=== PATIENT | female | born 1990 | race American Indian/Alaskan Native ===

== ENCOUNTER 2020-02-16 14:48 | Observation (INO) | payer OTHER ==
--- NOTE | 2020-02-16 15:10 | Event Note ---
ED Screening Note ED Screening Note: CO ABD PAIN FROM CYSTS - CHRONIC ISSUE- ON MENSES AND THIS IS WHEN IT IS WORSE ALSO CO CP PRESSURE FEELING NAUSEA SOB WORKS WITH PUBLIC RX NONE PSH NONE MENSES CURRENT This initial assessment/diagnostic orders/clinical plan/treatment(s) is/are subject to change based on patients health status, clinical progression and re- assessment by fellow clinical providers in the ED. Further treatment and workup at subsequent clinical providers discretion. Patient/guardian urged not to elope from the ED as their condition may be serious if not clinically assessed and managed. Initial orders include: XRAY UA/PREG
[2020-02-16 15:58] LABS: Bilirubin,Urine NEG (Negative); Blood,Urine LG (Negative); Color,Urine Yellow (Yellow); HCG Qualitative,Urine Negative (Negative); Mucus,Urine 1+ /HPF; Protein,Urine <15 mg/dL mg/dL (Negative); Urobilinogen,Urine < 2.0 mg/dL (<2.0)
[2020-02-16] MEDS ORDERED: KETOROLAC 30 MG/1 ML INJ IM ONE (16:22)
--- NOTE | 2020-02-16 16:26 | Emergency Department Report ---
ED Abdominal Pain HPI - General Chief Complaint: Abdominal Pain Stated Complaint: CHEST PAIN, ABD Time Seen by Provider: 02/16/20 15:08 Source: patient Mode of arrival: Ambulatory Limitations: No Limitations - History of Present Illness Initial Comments: This pleasant 29-year-old female presents the emergency department chief complaint of lower abdominal cramping that started yesterday. Patient reports a history of severe pain with her menstrual cycle and this has been going on for the past 3 years. She reports every month she will have severe pain similar to this in the lower abdomen when her period starts and after the first few days it will resolve. She states she frequently needs to go to the emergency department due to the severe pain though. She reports the pain is a 7 out of 10 described as cramping. She also reports that she has been having some pain in her chest when she moves her arms or coughs. She thinks she may have pulled a muscle. She states she has been having some nausea and vomiting which she relates to the pain. She denies any known past medical history, current medication use or known allergies to medications. Denies any bloody or bilious vomiting, denies any bloody diarrhea, denies any fever, chills, night sweats, headache, dizziness, blurry vision, shortness of breath, pleuritic pain, abscess or any other associated symptoms. - Related Data Allergies Allergy/AdvReac Type Severity Reaction Status Date / Time No Known Allergies Allergy Unverified 02/16/20 14:55 ED Review of Systems ROS: Stated complaint: CHEST PAIN, ABD Other details as noted in HPI Comment: All other systems reviewed and negative Constitutional: denies: chills, fever Eyes: denies: eye pain, eye discharge, vision change ENT: denies: ear pain, throat pain Respiratory: denies: cough, shortness of breath, wheezing Cardiovascular: as per HPI, chest pain. denies: palpitations Endocrine: no symptoms reported Gastrointestinal: as per HPI, abdominal pain. denies: nausea, diarrhea Genitourinary: denies: urgency, dysuria, discharge Musculoskeletal: denies: back pain, joint swelling, arthralgia Skin: denies: rash, lesions Neurological: denies: headache, weakness, paresthesias Psychiatric: denies: anxiety, depression Hematological/Lymphatic: denies: easy bleeding, easy bruising ED Past Medical Hx - Past Medical History Previous Medical History?: No - Surgical History Past Surgical History?: No - Family History Family history: no significant - Social History Smoking Status: Never Smoker Substance Use Type: None ED Physical Exam - General Limitations: No Limitations General appearance: alert, in no apparent distress - Head Head exam: Present: atraumatic, normocephalic - Eye Eye exam: Present: normal appearance, PERRL, EOMI Pupils: Absent: normal accommodation - ENT ENT exam: Present: normal exam, normal orophraynx, mucous membranes moist - Neck Neck exam: Present: normal inspection, full ROM. Absent: tenderness, meningismus - Respiratory Respiratory exam: Present: normal lung sounds bilaterally, chest wall tenderness (Tenderness to palpation of the right side of the chest wall). Absent: respiratory distress, wheezes, rales, rhonchi, stridor - Cardiovascular Cardiovascular Exam: Present: regular rate, normal rhythm. Absent: systolic murmur, diastolic murmur, rubs, gallop - GI/Abdominal GI/Abdominal exam: Present: soft, tenderness (Mild tenderness to suprapubic abdomen, no rebound or guarding, negative McBurney's point tenderness, negative Ng sign), normal bowel sounds. Absent: distended, guarding, rebound, rigid - Extremities Exam Extremities exam: Present: normal inspection, full ROM, normal capillary refill. Absent: tenderness, calf tenderness (Negative Homans sign bilaterally) - Back Exam Back exam: Present: normal inspection, full ROM. Absent: tenderness, CVA tenderness (R), CVA tenderness (L) - Neurological Exam Neurological exam: Present: alert, oriented X3, normal gait. Absent: motor sensory deficit - Psychiatric Psychiatric exam: Present: normal affect, normal mood - Skin Skin exam: Present: warm, dry, intact, normal color. Absent: rash ED Course Vital Signs 02/16/20 02/16/20 14:56 15:42 Temperature 98.4 F Pulse Rate 94 H Respiratory 18 15 Rate Blood Pressure 112/74 O2 Sat by Pulse 97 Oximetry ED Medical Decision Making - Radiology Data Radiology results: report reviewed, image reviewed Small right-sided pneumothorax. Critical care attestation.: If time is entered above; I have spent that time in minutes in the direct care of this critically ill patient, excluding procedure time. ED Disposition Clinical Impression: Dysmenorrhea Pneumothorax Qualifiers: Pneumothorax type: unspecified pneumothorax Qualified Code(s): J93.9 - Pneumothorax, unspecified Disposition: DC-09 OP ADMIT IP TO THIS HOSP Is pt being admited?: Yes Condition: Stable Referrals: PRIMARY CARE,MD [Primary Care Provider] - 3-5 Days Time of Disposition: 16:30
--- NOTE | 2020-02-16 16:34 | XRay Report ---
CHEST 2 VIEWS INDICATION / CLINICAL INFORMATION: CHEST PAIN. COMPARISON: None available. FINDINGS: SUPPORT DEVICES: None. HEART / MEDIASTINUM: No significant abnormality. LUNGS / PLEURA: There is a small right pneumothorax. Left lung appears clear. ADDITIONAL FINDINGS: No significant additional findings. IMPRESSION: 1. Small right pneumothorax. Findings discussed with Popeye Ahuja at 3:26 PM on 02/16/2020. Signer Name: Jacoby Obrien MD Signed: 02/16/2020 4:29 PM Workstation Name: [id number]
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
[2020-02-16] MEDS ORDERED: ONDANSETRON 4 MG/2 ML INJ IV PRN (16:43)
[2020-02-16] MEDS ORDERED: ACETAMINOPHEN 325 MG TAB PO PRN (16:43)
[2020-02-16 17:09] LABS: Basophils # (Auto) 0.1 K/mm3 (0.0-0.1); Basophils % (Auto) 0.7 % (0.0-1.8); Eosinophils % (Auto) 0.2 % (0.0-4.3); Hematocrit 36.2 % (30.3-42.9); Hemoglobin 11.9 gm/dl (10.1-14.3); Lymphocytes # (Auto) 1.1 K/mm3 (1.2-5.4); Mean Corpuscular HGB Conc 33 % (30-34); Mean Corpuscular Volume 84 fl (79-97); Monocytes # (Auto) 0.7 K/mm3 (0.0-0.8); Monocytes % (Auto) 6.2 % (0.0-7.3); Platelet Count 281 K/mm3 (140-440); Red Blood Count 4.33 M/mm3 (3.65-5.03); Red Cell Distribution Width 13.9 % (13.2-15.2)
[2020-02-16 17:16] LABS: Alanine Aminotransferase 10 units/L (7-56); Albumin 4.1 g/dL (3.9-5); BUN/Creatinine Ratio 14; Blood Urea Nitrogen 7 mg/dL (7-17); Hemolysis Index 7
[2020-02-16 17:51] LABS: INR 0.94 (0.87-1.13)
[2020-02-16 17:52] LABS: Partial Thromboplastin Time 34.6 Sec. (24.2-36.6)
[2020-02-16] MEDS: MORPHINE 2 MG/1 ML INJ IV PRN (19:36)
[2020-02-17] MEDS: MORPHINE 2 MG/1 ML INJ IV PRN (02:49)
--- NOTE | 2020-02-17 07:55 | XRay Report ---
CHEST 1 VIEW 0731 INDICATION / CLINICAL INFORMATION: pneumothorax COMPARISON: 02/16/2020 FINDINGS: SUPPORT DEVICES: None HEART / MEDIASTINUM: No significant abnormality. LUNGS / PLEURA: No significant infiltrates are seen. The right pneumothorax is improved and approxima tely 5% at this time. ADDITIONAL FINDINGS: No significant additional findings. IMPRESSION: Improved right pneumothorax Signer Name: Vishal Cash MD Signed: 02/17/2020 7:51 AM Workstation Name: [id number]
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
[2020-02-17 12:07] VITALS: BP 113/78
== END 2020-02-17 13:16 | disposition home or self-care (01) ==
LOC: ED 14:48 → 3B-SURG 16:43
PROVIDERS: ADMIT Internal Medicine; ATTEND Internal Medicine
DX: S27.0XXA Traumatic pneumothorax, initial encounter (principal); N94.6 Dysmenorrhea, unspecified; Y04.8XXA Assault by other bodily force, initial encounter; Y93.89 Activity, other specified; Y92.9 Unspecified place or not applicable
CPT/HCPCS: 36415; 71045; 71046; 80053; 81001; 81025; 85025; 85610; 85730; 93005; 96374; 96376; 99285; G0378; J2270

== ENCOUNTER 2021-08-29 10:26 | Emergency (ER) | payer OTHER ==
[2021-08-29 11:11] VITALS: BP 146/42
[2021-08-29] MEDS ORDERED: SODIUM CHLORIDE 0.9% 1000 ML 1,000 ML IV ONE (13:21)
[2021-08-29] MEDS ORDERED: METOCLOPRAMIDE 10 MG/2 ML INJ IV ONE (13:22)
--- NOTE | 2021-08-29 13:29 | Emergency Department Report ---
HPI - General Chief Complaint: Nausea/Vomiting/Diarrhea Time Seen by Provider: 08/29/21 12:57 - HPI HPI: 31-year-old female with history of endometriosis presents complaining of 2 days of diarrhea with nausea and one episode of vomiting. She states that for the last 2 days she has had approximately 5 episodes per day of loose stool. Over that time she is felt nauseated and slightly lightheaded but only had one episode of vomiting yesterday. Right now she still feels significantly nauseated. She says the frequency of her stools have decreased but because of the persistent nausea she decided to come in for further evaluation. She is unsure the exact date of her LMP because she has a regular menstrual periods. She says she has been vaginal spotting for the past 1 week. She denies any associated fever/chills, headache, vision change, shortness of breath, cough, chest pain, abdominal pain, dysuria, vaginal discharge, back pain, focal weakn ess, sensory changes, or any other complaints. She is fully vaccinated against COVID-19 but has not received a booster. ED Past Medical Hx - Past Medical History Previous Medical History?: Yes Hx Congestive Heart Failure: No Hx Diabetes: No Hx Asthma: No Hx COPD: No Additional medical history: endometriosis - Social History Smoking Status: Never Smoker - Medications Home Medications: Home Medications Medication Instructions Recorded Confirmed Last Taken Type oxyCODONE /ACETAMINOPHEN [Percocet 1 tab PO Q6HR PRN #15 tablet 02/17/20 Unknown Rx 5/325] Pantoprazole [Protonix TAB] 40 mg PO QDAY #14 tablet 08/29/21 Unknown Rx cephALEXin [Keflex] 500 mg PO Q12HR #14 cap 08/29/21 Unknown Rx ED Review of Systems ROS: Stated complaint: V/D AND CHEST PAIN X2 DAYS Other details as noted in HPI Comment: All other systems reviewed and negative Constitutional: denies: chills, fever Eyes: denies: eye pain, vision change ENT: denies: throat pain, congestion Respiratory: denies: cough, shortness of breath Cardiovascular: denies: chest pain, palpitations Gastrointestinal: nausea, vomiting, diarrhea. denies: abdominal pain, melena, hematochezia Genitourinary: denies: dysuria, frequency Musculoskeletal: denies: back pain, arthralgia Skin: denies: rash, lesions Neurological: denies: headache, weakness, numbness Physical Exam - Physical Exam Vital Signs: Vital Signs 08/29/21 11:09 Temperature 98.4 F Pulse Rate 82 Respiratory 17 Rate Blood Pressure 146/42 O2 Sat by Pulse 98 Oximetry Physical Exam: GENERAL: Well developed and well nourished. No acute distress HEAD: Normocephalic. No obvious signs of trauma. ENT: Dry mucous membranes. EYES: Extraocular movements are intact. Pupils are equal round and reactive to light bilaterally NECK: Supple. Full ROM is intact. Trachea is midline. LUNGS: Nonlabored breathing. Equal chest rise bilaterally. Clear to auscultation bilaterally. CARDIOVASCULAR: Regular rate and rhythm. No murmurs or rubs. VASCULAR: Cap refill < 2 seconds ABDOMEN: Abdomen is soft and nondistended. Positive Ng sign. There is right upper quadrant tenderness without guarding or rebound. The remainder of the abdomen is nontender. SKIN: Skin is warm and dry NEURO: Patient is awake, alert, and oriented. pattern storage clerk II-XII grossly intact. No focal deficits. Normal motor and sensory exam throughout. Normal speech. MUSCULOSKELETAL: No obvious deformities. No significant tenderness. Normal ROM throughout. BACK/SPINE: No midline tenderness or step-offs of the C/T/L spine. No costovertebral angle tenderness. ED Course Vital Signs 08/29/21 11:09 Temperature 98.4 F Pulse Rate 82 Respiratory 17 Rate Blood Pressure 146/42 O2 Sat by Pulse 98 Oximetry ED Medical Decision Making - Lab Data Result diagrams: 08/29/21 13:44 08/29/21 17:44 Lab Results 08/29/21 08/29/21 08/29/21 Range/Units 13:43 13:44 13:44 WBC 9.3 (4.5-11.0) K/mm3 RBC 4.36 (3.65-5.03) M/mm3 Hgb 12.1 (10.1-14.3) gm/dl Hct 36.7 (30.3-42.9) % MCV 84 (79-97) fl MCH 28 (28-32) pg MCHC 33 (30-34) % RDW 13.5 (13.2-15.2) % Plt Count 245 (140-440) K/mm3 Lymph % (Auto) 19.6 (13.4-35.0) % [place] % (Auto) 5.1 (0.0-7.3) % Eos % (Auto) 1.2 (0.0-4.3) % Baso % (Auto) 0.7 (0.0-1.8) % Lymph # (Auto) 1.8 (1.2-5.4) K/mm3 [place] # (Auto) 0.5 (0.0-0.8) K/mm3 Eos # (Auto) 0.1 (0.0-0.4) K/mm3 Baso # (Auto) 0.1 (0.0-0.1) K/mm3 Seg Neutrophils % 73.4 H (40.0-70.0) % Seg Neutrophils # 6.8 (1.8-7.7) K/mm3 Sodium 141 (137-145) mmol/L Potassium 5.6 H (3.6-5.0) mmol/L Chloride 105.9 (98-107) mmol/L Carbon Dioxide 20 L (22-30) mmol/L Anion Gap 21 mmol/L BUN 11 (7-17) mg/dL Creatinine 0.5 L (0.6-1.2) mg/dL Estimated GFR > 60 ml/min BUN/Creatinine Ratio 22 % Glucose 78 (65-100) mg/dL Calcium 9.0 (8.4-10.2) mg/dL Magnesium 2.20 (1.7-2.3) mg/dL Total Bilirubin 0.50 (0.1-1.2) mg/dL Direct Bilirubin < 0.2 (0-0.2) mg/dL Indirect Bilirubin 0.3 mg/dL AST 33 (5-40) units/L ALT 18 (7-56) units/L Alkaline Phosphatase 48 (35-129) units/L Total Protein 7.5 (6.3-8.2) g/dL Albumin 4.2 (3.9-5) g/dL Albumin/Globulin Ratio 1.3 % Lipase 22 (13-60) units/L HCG, Qual Negative (Negative) Urine Color (Yellow) Urine Turbidity (Clear) Urine pH (5.0-7.0) Ur Specific [place] (1.003-1.030) Urine Protein (Negative) mg/dL Urine Glucose (UA) (Negative) mg/dL Urine Ketones (Negative) mg/dL Urine Blood (Negative) Urine Nitrite (Negative) Urine Bilirubin (Negative) Urine Urobilinogen (<2.0) mg/dL Ur Leukocyte Esterase (Negative) Urine WBC (Auto) (0.0-6.0) /HPF Urine RBC (Auto) (0.0-6.0) /HPF U Epithel Cells (Auto) (0-13.0) /HPF Urine Bacteria (Auto) (Negative) /HPF Urine Mucus /HPF 08/29/21 08/29/21 Range/Units 17:44 Unknown WBC (4.5-11.0) K/mm3 RBC (3.65-5.03) M/mm3 Hgb (10.1-14.3) gm/dl Hct (30.3-42.9) % MCV (79-97) fl MCH (28-32) pg MCHC (30-34) % RDW (13.2-15.2) % Plt Count (140-440) K/mm3 Lymph % (Auto) (13.4-35.0) % [place] % (Auto) (0.0-7.3) % Eos % (Auto) (0.0-4.3) % Baso % (Auto) (0.0-1.8) % Lymph # (Auto) (1.2-5.4) K/mm3 [place] # (Auto) (0.0-0.8) K/mm3 Eos # (Auto) (0.0-0.4) K/mm3 Baso # (Auto) (0.0-0.1) K/mm3 Seg Neutrophils % (40.0-70.0) % Seg Neutrophils # (1.8-7.7) K/mm3 Sodium (137-145) mmol/L Potassium 3.7 D (3.6-5.0) mmol/L Chloride (98-107) mmol/L Carbon Dioxide (22-30) mmol/L Anion Gap mmol/L BUN (7-17) mg/dL Creatinine (0.6-1.2) mg/dL Estimated GFR ml/min BUN/Creatinine Ratio % Glucose (65-100) mg/dL Calcium (8.4-10.2) mg/dL Magnesium (1.7-2.3) mg/dL Total Bilirubin (0.1-1.2) mg/dL Direct Bilirubin (0-0.2) mg/dL Indirect Bilirubin mg/dL AST (5-40) units/L ALT (7-56) units/L Alkaline Phosphatase (35-129) units/L Total Protein (6.3-8.2) g/dL Albumin (3.9-5) g/dL Albumin/Globulin Ratio % Lipase (13-60) units/L HCG, Qual (Negative) Urine Color Yellow (Yellow) Urine Turbidity Hazy (Clear) Urine pH 7.0 (5.0-7.0) Ur Specific [place] 1.013 (1.003-1.030) Urine Protein <15 mg/dl (Negative) mg/dL Urine Glucose (UA) Neg (Negative) mg/dL Urine Ketones Neg (Negative) mg/dL Urine Blood Neg (Negative) Urine Nitrite Neg (Negative) Urine Bilirubin Neg (Negative) Urine Urobilinogen 4.0 (<2.0) mg/dL Ur Leukocyte Esterase Tr (Negative) Urine WBC (Auto) 16.0 H (0.0-6.0) /HPF Urine RBC (Auto) 2.0 (0.0-6.0) /HPF U Epithel Cells (Auto) < 1.0 (0-13.0) /HPF Urine Bacteria (Auto) 1+ (Negative) /HPF Urine Mucus Few /HPF - Radiology Data Radiology results: report reviewed - Medical Decision Making 31-year-old female presenting with 2 days of diarrhea and now with nausea/v omiting. Also with vaginal spotting for the past week. She is afebrile and with normal vital signs. On physical examination she has very dry mucous membranes and is noted to have tenderness in the right upper quadrant of the abdomen without guarding or rebound. She has no CVA tenderness. Given her abdominal tenderness we will perform broad work-up with a full set of labs as well as right upper quadrant ultrasound to assess for evidence of cholecystitis or cholelithiasis or choledocholithiasis. We will also obtain CT of the abdomen pelvis to assess for evidence of appendicitis, colitis, cholecystitis, or other intra-abdominal abnormality to explain the patient's presentation. We will o btain ultrasound of the bilateral ovaries to assess for evidence of torsion. We will give 1 L of IV fluids and Reglan and reassess. Labs reveal no significant leukocytosis or anemia. Kidney function is within normal limits and there is a single elevated potassium of 5.6 which I suspect is a lab error. I have ordered a repeat set of labs Lipase is negative. Serum hCG is negative. Transvaginal ultrasound reveals no abnormalities of the ovaries and normal color flow. Right upper quadrant ultrasound reveals no acute abnormalities and no evidence of cholecystitis or cholelithiasis. CT of the abdomen pelvis reveals symmetrical thickening of the distal stomach which is interpreted as physiologic contraction versus peptic ulcer disease. I have ordered 1 dose of Protonix now. Urinalysis reveals findings consistent with urinary tract infection for which I have ordered ceftriaxone. Repeat potassium is 3.7. I discussed with the patient the results of her studies and my suspicion for UTI and possible peptic ulcer disease. We discussed the plan to discharge the patient home on 14 days of omeprazole and 7 days of Keflex for urinary tract infection. She will follow-up with her primary care doctor and I will give her referral to gastroenterology. The patient expressed understanding and agreement with this plan of care. Critical care attestation.: If time is entered above; I have spent that time in minutes in the direct care of this critically ill patient, excluding procedure time. ED Disposition Clinical Impression: UTI (urinary tract infection), Dyspepsia Disposition: HOME / SELF CARE / HOMELESS Is pt being admited?: No Condition: Stable Instructions: Antibiotic Medicine, Adult, [id number], Urinary Tract Infection, Adult, Peptic Ulcer, [id number] Additional Instructions: Please follow-up with the used car salesperson you have been given for referral. Take all medications exactly as prescribed. Return to the emergency department for any significantly worsening symptoms or new emergent health concerns. Prescriptions: cephALEXin [Keflex] 500 mg PO Q12HR #14 cap Pantoprazole [Protonix TAB] 40 mg PO QDAY #14 tablet Referrals: JEAN KRISHNAN MD [Staff Physician] - 3-5 Days [facility] [Provider Group] - 3-5 Days
[2021-08-29 14:19] LABS: Basophils # (Auto) 0.1 K/mm3 (0.0-0.1); Basophils % (Auto) 0.7 % (0.0-1.8); Eosinophils # (Auto) 0.1 K/mm3 (0.0-0.4); Eosinophils % (Auto) 1.2 % (0.0-4.3); Hematocrit 36.7 % (30.3-42.9); Hemoglobin 12.1 gm/dl (10.1-14.3); Lymphocytes # (Auto) 1.8 K/mm3 (1.2-5.4); Lymphocytes % (Auto) 19.6 % (13.4-35.0); Mean Corpuscular HGB Conc 33 % (30-34); Mean Corpuscular Volume 84 fl (79-97); Monocytes # (Auto) 0.5 K/mm3 (0.0-0.8); Monocytes % (Auto) 5.1 % (0.0-7.3); Platelet Count 245 K/mm3 (140-440); Red Blood Count 4.36 M/mm3 (3.65-5.03); Red Cell Distribution Width 13.5 % (13.2-15.2)
[2021-08-29 14:49] LABS: Alanine Aminotransferase 18 units/L (7-56); Albumin 4.2 g/dL (3.9-5); Blood Urea Nitrogen 11 mg/dL (7-17); Hemolysis Index 326
[2021-08-29 14:50] LABS: BUN/Creatinine Ratio 22; Bilirubin,Direct < 0.2 mg/dL (0-0.2)
--- NOTE | 2021-08-29 15:56 | Ultrasound Report ---
ULTRASOUND ABDOMEN, LIMITED (RIGHT UPPER QUADRANT) INDICATION: RUQ tenderness. COMPARISON: None available. FINDINGS: Pancreas: Visualized portion shows no significant abnormality. Liver: Normal. Gallbladder: Normal. Bile ducts: Normal. Common Bile Duct measures 2 mm. Free fluid: None. Additional Findings: None. IMPRESSION: 1. No sonographic abnormality of the right upper quadrant. Signer Name: Anjum Bullock MD Signed: 08/29/2021 3:52 PM Workstation Name: [id number]
--- NOTE | 2021-08-29 15:59 | Ultrasound Report ---
ULTRASOUND PELVIS INDICATION / CLINICAL INFORMATION: eval b/l ovaries with color flow. TECHNIQUE: Transabdominal and Transvaginal. Duplex Color Doppler used: Yes. COMPARISON: None available FINDINGS: UTERUS: Uterus measures 6.4 cm in length. Endometrial stripe measures 5 mm. No focal uterine lesions are seen. RIGHT ADNEXA: No significant ovarian cyst or mass. Normal color Doppler blood flow. The right ovary m easures 2.9 cm in length. LEFT ADNEXA: There are small follicular cysts in the left ovary measuring up to 7 mm. Normal color Do ppler blood flow. The left ovary measures 3.2 cm in length. URINARY BLADDER: No significant abnormality. FREE FLUID: None. ADDITIONAL FINDINGS: None. IMPRESSION: 1. No significant abnormality. Signer Name: Anjum Bullock MD Signed: 08/29/2021 3:54 PM Workstation Name: [id number]
--- NOTE | 2021-08-29 16:10 | Cat Scan Report ---
CT ABDOMEN AND PELVIS WITH CONTRAST INDICATION / CLINICAL INFORMATION: Right upper quadrant pain. TECHNIQUE: Axial CT images were obtained through the abdomen and pelvis after Omnipaque 300, 100 cc I V contrast. All CT scans at this location are performed using CT dose reduction for ALARA by means o f automated exposure control. COMPARISON: None available. FINDINGS: LOWER CHEST: No significant abnormality. LIVER: No significant abnormality. GALLBLADDER: No significant abnormality. BILE DUCTS: No significant abnormality. PANCREAS: No significant abnormality. SPLEEN: No significant abnormality. ADRENALS: No significant abnormality. RIGHT KIDNEY / URETER: No significant abnormality. LEFT KIDNEY / URETER: No significant abnormality. STOMACH / SMALL BOWEL: Symmetric thickening of the distal stomach. COLON: No significant abnormality. APPENDIX: Nonvisualized. No right lower quadrant inflammatory process is identified. PERITONEUM: No free fluid. No free air. No fluid collection. LYMPH NODES: No significant adenopathy. VASCULAR STRUCTURES: No significant abnormality. URINARY BLADDER: No significant abnormality. REPRODUCTIVE ORGANS: No significant abnormality. ADDITIONAL FINDINGS: None. SKELETAL SYSTEM: No significant abnormality. IMPRESSION: Symmetric thickening of the distal stomach. Physiologic contraction versus peptic diseas e. Signer Name: Nicko Harrington MD Signed: 08/29/2021 4:06 PM Workstation Name: [id number]
[2021-08-29 17:04] LABS: Bacteria,Urine 1+ /HPF (Negative); Bilirubin,Urine NEG (Negative); Blood,Urine NEG (Negative); Color,Urine Yellow (Yellow); Mucus,Urine FEW /HPF; Protein,Urine <15 mg/dL mg/dL (Negative)
[2021-08-29] MEDS ORDERED: PANTOPRAZOLE 40 MG INJ IV ONE (17:06)
[2021-08-29] MEDS ORDERED: cefTRIAXone/NS 1 GM/50 ML 1 GM/50 ML BAG IV ONE (17:33)
== END 2021-08-29 22:01 | disposition home or self-care (01) ==
LOC: ED 10:26
DX: N39.0 Urinary tract infection, site not specified (principal); R10.13 Epigastric pain; N80.9 Endometriosis, unspecified
CPT/HCPCS: 36415; 74177; 76705; 76830; 80048; 80076; 81001; 83690; 83735; 84132; 84703; 85025; 87086; 93975; 96361; 96365; 96375; 99284; C9113; J0696; J2765; J7030; Q9967; Q0162

== ENCOUNTER 2022-01-13 18:55 | Emergency (ER) | payer SELFPAY ==
[2022-01-13 21:42] LABS: Basophils # (Auto) 0.1 K/mm3 (0.0-0.1); Basophils % (Auto) 0.5 % (0.0-1.8); Eosinophils # (Auto) 0.1 K/mm3 (0.0-0.4); Eosinophils % (Auto) 0.6 % (0.0-4.3); Hematocrit 38.4 % (30.3-42.9); Hemoglobin 12.3 gm/dl (10.1-14.3); Lymphocytes # (Auto) 1.8 K/mm3 (1.2-5.4); Lymphocytes % (Auto) 12.3 % (13.4-35.0); Mean Corpuscular HGB Conc 32 % (30-34); Mean Corpuscular Volume 84 fl (79-97); Monocytes # (Auto) 0.8 K/mm3 (0.0-0.8); Monocytes % (Auto) 5.3 % (0.0-7.3); Platelet Count 282 K/mm3 (140-440); Red Blood Count 4.55 M/mm3 (3.65-5.03); Red Cell Distribution Width 13.5 % (13.2-15.2)
[2022-01-13 22:07] LABS: Alanine Aminotransferase 8 units/L (7-56); Albumin 4.2 g/dL (3.9-5); Blood Urea Nitrogen 9 mg/dL (7-17); Calcium 8.7 mg/dL (8.4-10.2); Hemolysis Index 5
[2022-01-13 22:09] LABS: BUN/Creatinine Ratio 13
[2022-01-14 01:25] LABS: Bilirubin,Urine NEG (Negative); Blood,Urine SM (Negative); Color,Urine Yellow (Yellow); Mucus,Urine 1+ /HPF; Protein,Urine <15 mg/dL mg/dL (Negative); Urobilinogen,Urine < 2.0 mg/dL (<2.0)
[2022-01-14] MEDS ORDERED: oxyCODONE /ACETAMINOPHEN 5-325MG TAB PO ONE (03:02)
[2022-01-14] MEDS ORDERED: KETOROLAC 60 MG/2 ML INJ IM STA (03:02)
--- NOTE | 2022-01-14 03:09 | Emergency Department Report ---
ED Female HPI - General Chief complaint: Abdominal Pain Stated complaint: RIGHT OVARY/ENDOMETROSIS/CP/VOMITING Time Seen by Provider: 01/14/22 03:02 Source: patient Mode of arrival: Ambulatory Limitations: No Limitations - History of Present Illness Initial comments: 31-year-old female with a known history of right ovarian cyst and endometriosis presents emerged department complaining of pain as her cycle starting. Patient states she has very pain from menstrual cycle due to this condition which initially had improved after she had her treatment surgically in the summer 2020. She reports no pelvic trauma. No fevers, chills, sweats. No nausea or vomiting. But 6 her endometriosis cocktail mitigate this flareup. MD Complaint: pelvic pain -: Gradual Location: suprapubic Radiation: suprapubic Severity: moderate Quality: cramping, sharp, dull Consistency: constant Improves with: none Worsens with: none Are you Now?: No - Related Data Previous Rx's Medication Instructions Recorded Last Taken Type oxyCODONE /ACETAMINOPHEN [Percocet 1 tab PO Q6HR PRN #15 tablet 02/17/20 Unknown Rx 5/325] Pantoprazole [Protonix TAB] 40 mg PO QDAY #14 tablet 08/29/21 Unknown Rx cephALEXin [Keflex] 500 mg PO Q12HR #14 cap 08/29/21 Unknown Rx Ketorolac [Toradol] 10 mg PO Q6H PRN #15 tablet 01/14/22 Unknown Rx traMADoL [Ultram] 50 mg PO Q6HR PRN #20 tablet 01/14/22 Unknown Rx Allergies Allergy/AdvReac Type Severity Reaction Status Date / Time No Known Allergies Allergy Verified 08/29/21 11:12 ED Review of Systems ROS: Stated complaint: RIGHT OVARY/ENDOMETROSIS/CP/VOMITING Other details as noted in HPI Comment: All other systems reviewed and negative ED Past Medical Hx - Past Medical History Hx Congestive Heart Failure: No Hx Diabetes: No Hx Asthma: No Hx COPD: No Additional medical history: endometriosis - Social History Smoking Status: Never Smoker - Medications Home Medications: Home Medications Medication Instructions Recorded Confirmed Last Taken Type oxyCODONE /ACETAMINOPHEN [Percocet 1 tab PO Q6HR PRN #15 tablet 02/17/20 Unknown Rx 5/325] Pantoprazole [Protonix TAB] 40 mg PO QDAY #14 tablet 08/29/21 Unknown Rx cephALEXin [Keflex] 500 mg PO Q12HR #14 cap 08/29/21 Unknown Rx Ketorolac [Toradol] 10 mg PO Q6H PRN #15 tablet 01/14/22 Unknown Rx traMADoL [Ultram] 50 mg PO Q6HR PRN #20 tablet 01/14/22 Unknown Rx ED Physical Exam - General Limitations: No Limitations General appearance: alert, in no apparent distress - Head Head exam: Present: atraumatic, normocephalic - Eye Eye exam: Present: normal appearance, PERRL, EOMI Pupils: Present: normal accommodation - ENT ENT exam: Present: mucous membranes moist - Neck Neck exam: Present: normal inspection - Respiratory Respiratory exam: Present: normal lung sounds bilaterally. Absent: respiratory distress - Cardiovascular Cardiovascular Exam: Present: regular rate, normal rhythm. Absent: systolic murmur, diastolic murmur, rubs, gallop - GI/Abdominal GI/Abdominal exam: Present: soft, normal bowel sounds - Extremities Exam Extremities exam: Present: normal inspection, normal capillary refill - Back Exam Back exam: Present: normal inspection. Absent: CVA tenderness (R), CVA tenderness (L) - Neurological Exam Neurological exam: Present: alert, oriented X3, CN II-XII intact - Psychiatric Psychiatric exam: Present: normal affect, normal mood - Skin Skin exam: Present: warm, dry, intact, normal color. Absent: rash ED Course Vital Signs 01/13/22 20:49 Temperature 98.7 F Pulse Rate 89 Respiratory 18 Rate Blood Pressure 109/69 O2 Sat by Pulse 99 Oximetry ED Medical Decision Making - Lab Data Result diagrams: 01/13/22 21:07 01/13/22 21:07 - Medical Decision Making 31-year-old female with dysmenorrhea due to endometriosis and ovarian cyst seeking treatment and will follow up with her CERTIFIED [employer]TH[employer] REPORTER in the future. There is no vaginal discharge no suspicion for an STD no no dysuria. Treated emergency department with Toradol shot in conjunction with Percocet at pills and will be discharged home. Critical care attestation.: If time is entered above; I have spent that time in minutes in the direct care of this critically ill patient, excluding procedure time. ED Disposition Clinical Impression: Dysmenorrhea Disposition: HOME / SELF CARE / HOMELESS Is pt being admited?: No Does the pt Need Aspirin: No Condition: Stable Instructions: Abdominal Pain (ED), Dysmenorrhea Prescriptions: Ketorolac [Toradol] 10 mg PO Q6H PRN #15 tablet PRN Reason: Pain traMADoL [Ultram] 50 mg PO Q6HR PRN #20 tablet PRN Reason: Pain Referrals: [facility] [Provider Group] - 3-5 Days
[2022-01-14 04:29] VITALS: BP 124/72
== END 2022-01-14 04:29 | disposition home or self-care (01) ==
LOC: ED 18:55
DX: N94.6 Dysmenorrhea, unspecified (principal)
CPT/HCPCS: 36415; 80053; 81001; 84703; 85025; 96372; 99283; J1885